=== PATIENT | male | born 1935 | race Caucasian/White ===

== ENCOUNTER → 2019-06-07 | Outpatient (REF) | payer MEDICARE | LOC: M LAB REF 15:18 | DX: D61.818 Other pancytopenia (principal) ==

== ENCOUNTER → 2019-06-21 | Outpatient (REF) | payer MEDICARE ==
[2019-06-21 12:54] LABS: BASO % 0.2 % (0.0-1.0); HEMATOCRIT 21.5 % (42.0-52.0); HEMOGLOBIN 7.2 g/dl (13.5-17.5); LYMPH # 2.9 10^3/uL (1.5-5.0); LYMPH % 44.2 % (24.0-44.0); MEAN CORPUSCULAR HEMOGLOBIN 34.1 pg (27.0-33.0); MEAN CORPUSCULAR HGB CONC 33.5 g/dl (32.0-36.5); MEAN CORPUSCULAR VOLUME 101.9 fl (80.0-96.0); MONO # 2.2 10^3/uL (0.0-0.8); MONO % 33.3 % (0.0-5.0); NEUTROPHILS # 1.4 10^3/uL (1.5-8.5); NEUTROPHILS % 22.3 % (36.0-66.0); RED BLOOD COUNT 2.11 10^6/uL (4.30-6.10); WHITE BLOOD COUNT 6.5 10^3/uL (4.0-10.0)
[2019-06-21 13:37] LABS: PLATELET COUNT, AUTOMATED 31 10^3/uL (150-450)
== END ==
LOC: M LABDRWAD 12:17
DX: D61.818 Other pancytopenia (principal)

== ENCOUNTER 2019-06-24 07:18 | Inpatient (IN) | payer MEDICARE ==
[2019-06-24] VITALS (12 sets, daily range): BP systolic 117–143; BP diastolic 53–90
[~2019-06-24] VITALS: Ht 162.6 cm; Wt 62.5 kg
[2019-06-24] MEDS ORDERED: LISI-538 PO (07:28)
[2019-06-24] MEDS ORDERED: ASPI81TA85 PO (07:28)
[2019-06-24 08:05] LABS: MEAN CORPUSCULAR HEMOGLOBIN 34.1 pg (27.0-33.0); MEAN CORPUSCULAR HGB CONC 33.5 g/dl (32.0-36.5); MEAN CORPUSCULAR VOLUME 101.6 fl (80.0-96.0); RED BLOOD COUNT 1.82 10^6/uL (4.30-6.10); WHITE BLOOD COUNT 6.6 10^3/uL (4.0-10.0)
[2019-06-24 08:09] LABS: HEMATOCRIT 18.5 % (42.0-52.0); HEMOGLOBIN 6.2 g/dl (13.5-17.5)
[2019-06-24 08:10] LABS: PLATELET COUNT, AUTOMATED 27 10^3/uL (150-450)
[2019-06-24 08:30] LABS: ALBUMIN 2.8 GM/DL (3.2-5.2); ALT/SGPT 12 U/L (12-78); BILIRUBIN,DIRECT < 0.1 MG/DL (0.0-0.2); BILIRUBIN,TOTAL 0.3 MG/DL (0.2-1.0); BLOOD UREA NITROGEN 28 MG/DL (7-18); CALCIUM LEVEL 8.3 MG/DL (8.8-10.2); CARBON DIOXIDE LEVEL 21 MEQ/L (21-32); CHLORIDE LEVEL 107 MEQ/L (98-107); CK-MB VALUE MASS < 1.0 NG/ML (<3.6); CPK CREATINE PHOSPHOKINASE 29 U/L (39-308); CREATININE FOR GFR 1.16 MG/DL (0.70-1.30); GLOMERULAR FILTRATION RATE > 60.0 (>35); GLUCOSE, FASTING 115 MG/DL (70-100); MB/CK RELATIVE INDEX 3.45 (< OR =4); POTASSIUM SERUM 4.2 MEQ/L (3.5-5.1); SODIUM LEVEL 135 MEQ/L (136-145); TOTAL PROTEIN 7.8 GM/DL (6.4-8.2); TROPONIN I < 0.02 NG/ML (< 0.10)
[2019-06-24 08:31] LABS: PERCENT SATURATION 77.8 % (19.7-50.0)
[2019-06-24 08:41] LABS: LYMPHOCYTES 25 % (16-44); MONOCYTES 53 % (0-5); NEUTROPHILS 22 % (28-66)
[2019-06-24 08:43] LABS: ANISOCYTOSIS 2+; HYPOCHROMASIA 2+; PLATELET ESTIMATE MARKED DECREASE (NORMAL); POLYCHROMASIA 1+
[2019-06-24 08:44] LABS: POIKILOCYTOSIS 1+
[2019-06-24] MEDS ORDERED: ACETAMINOPHEN TAB 650MG DOSE (2X325MG) PO PRN (08:45)
[2019-06-24 08:47] LABS: FOLATE 11.2 NG/ML (>5.4)
[2019-06-24 09:10] LABS: INR 1.17; PROTHROMBIN TIME 14.6 SECONDS (11.8-14.0)
[2019-06-24 09:14] LABS: PARTIAL THROMBOPLASTIN TIME 39.7 SECONDS (25.0-38.4)
--- NOTE | 2019-06-24 13:33 | HPEPDOC ---
[facility] Medical History & Physical Date of Admission Jun 24, 2019 Date of Service: Jun 24, 2019 Other Provider PCP- Dr. Jain, [facility] Attending Physician: Olivia Almaguer MD History and Physical CHIEF COMPLAINT: weakness HISTORY OF PRESENT ILLNESS: The patient is an 84-year-old male with past medical history of hypertension who presented to [facility] emergency room with the chief complaint of increased weakness. According to the patient he's had worsening weakness over the past 2-3 months, mostly increasing over the past one month. He states that he needed a transfusion about one month ago in the [facility] area. He is new to the area for one month and has not established with a primary care provider. Today he says that in addition to weakness he also felt lightheaded and had had a productive cough of thick sputum. This prompted him to come to the emergency room for further evaluation. He denied shortness of breath, sick contacts, recent hospitalizations, dizziness, fevers, chills, recent illnesses, recent travel out of the country, nausea, vomiting, diarrhea, headache, vision changes, bleeding, abdominal pain, loss of appetite, fluttering of the chest or chest pain. In the ER, labs were unremarkable aside from platelet level of 27 and a hemoglobin/hematocrit of 6.2 and 18.5. The patient consented to blood transfusion and 1 unit of PRBC was ordered. On exam the patient had no abdominal pain and did not complain of any acute bleeding so CT of the abdomen was not done. He is on aspirin at home and has no history of hematological issues in the past. The patient is frail appearing, pale and has a resting tremor in the jenni ateral upper extremities. The patient was admitted under inpatient status for symptomatic anemia requiring blood transfusion. REVIEW OF SYSTEMS: CONSTITUTIONAL: Denies unexplained weight gain or weight loss, loss of appetite, fever, night sweats EYES: Denies eye drainage, eye pain, visual changes, dry/irritated eye EARS, NOSE, MOUTH, THROAT: Denies difficulty hearing, ringing in ears, mouth sor es, loose teeth, sore throat, facial numbness or pain NECK: Denies swollen glands CARDIOVASCULAR: Denies irregular heartbeat, racing heart, chest pains, swelling of feet or legs, pain in legs with walking RESPIRATORY: Denies shortness of breath, night sweats, wheezing, oxygen at home, coughing up blood, cough lasting > 1 month GASTROINTESTINAL: Denies abdominal pain, constipation, bloody stool, diarrhea, heartburn, nausea, vomiting GENITOURINARY: Denies painful urination, bloody urine, frequent urination, urgency, leaking urine, impotence MUSCULOSKELETAL: Denies joint pain, muscle pain, leg swelling INTEGUMENTARY: Denies rash, itching, new skin lesion, change in existing skin lesion, hair loss or increase, breast changes. NEUROLOGICAL: Denies headaches, dizziness, difficulty walking, numbness or tingling PSYCHIATRIC: Denies depression, anxiety, recurrent bad thoughts, mood swings, h allucinations PAST MEDICAL HISTORY: 1. HTN PAST SURGICAL HISTORY: None FAMILY HISTORY: Father: unknown to patient, at 80 y/o Mother: unknown to patient, at 84 y/o Siblings: brother CAD, at 30 y/o SOCIAL HISTORY: Patient is a prior smoker of 1 pack every 2 days, smoked for 31 years and quit in 1982. He denies any alcohol or drug use. His primary care provider is Dr. Jain in [place], [place]. He states he has seen subassemblies wirer in the past but cannot remember her name. He does not have any other specialists that he follows with. He's recently moved to the local area to live with his brother as he was having some difficulty caring for himself at his prior residence. His brother's name is Felice Pascual. He has no advance directives but a MOLST form was filled out today with him at the bedsidehe is a DNR/DNI. ALLERGIES: NKDA HOME MEDICATIONS: Please see below. PHYSICAL EXAMINATION: CONSTITUTIONAL: Pale in color, no acute distress, resting comfortably, AAO x 3 EYES: PERRLA, EOM intact HENT, MOUTH: Normocephalic, atraumatic, moist mucous membranes, NECK: SUPPLE, no JVD, no lymphadenopathy, no carotid bruit CV: Regular rate and rhythm, S1S2 normal, no murmurs/rubs/gallops RESPIRATORY: Clear to auscultation bilaterally, no rales/rhonchi/wheezes GI: BS positive in 4 quadrants, soft, nontender, nondistended, no rebound or guarding, no organomegaly : Deferred MUSCULOSKELETAL: Normal ROM. No cyanosis, clubbing, swelling, joint deformity, e xtremity edema INTEGUMENTARY: Intact, no rashes, no lesions, no erythema NEUROLOGIC: bilateral upper ext resting treamor, Cranial Nerves II-XII are intact, no focal deficits, no sensory or motor deficit PSYCHIATRIC: Mood and affect are normal LABORATORY DATA: Please see below IMAGING: none ASSESSMENT: Recent is an 84-year-old male admitted for symptomatic anemia requiring transfusion. PLAN: 1. Symptomatic anemia. Hx of blood transfusion, thinks he was seen by a "blood doctor" in [place]. MCV 101. Vitamin B12 and folic acid are within normal limits. Ferritin, transferrin high. TIBC low, ferritin and iron wnl. Follow up TSH, LDH, reticulocyte count, haptoglobin. Consider hepatitis panel, HIV test. If negative consider hematology consult, may require bone marrow biopsy. F/u occult blood as patient is on home ASA (stopped), daily CBC. Goal Hgb >7 2. Stable. C/w home lisinopril. 3. DVT px. Contraindicated while occult blood pending. SCDs, encourage ambulation. DISPOSITION: Admitted under inpatient status. Plan is hopefully discharge home when medically improved. Vital Signs Vital Signs Date Time Temp Pulse Resp B/P (MAP) Pulse Ox O2 Delivery O2 Flow Rate FiO2 06/24/19 13:00 99.6 74 16 130/90 100 Room Air Laboratory Data Labs 24H Laboratory Tests 2 06/24/19 07:47: Neutrophils (%) (Auto) , Nucleated Red Blood Cells % (auto) 0.5H, Neutrophils 22L, Lymphocytes (Manual) 25, Monocytes (Manual) 53H, Polychromasia 1+, Hypochromasia 2+, Poikilocytosis 1+, Anisocytosis 2+, Macrocytosis 1+, Platelet Estimate MARKED DECREASE, Immature Platelet Fraction 8.1, Prothrombin Time 14.6H, Prothromb Time International Ratio 1.17, Activated Partial Thromboplast Time 39.7H, Anion Gap 7L, Glomerular Filtration Rate > 60.0, Calcium Level 8.3L, Iron Level 133, Total Iron Binding Capacity 171L, Transferrin % Saturation 77.8H, Ferritin 845H, Total Bilirubin 0.3, Direct Bilirubin < 0.1, Aspartate Amino Transf (AST/SGOT) 8, Alanine Aminotransferase (ALT/SGPT) 12, Alkaline Phos phatase 78, Total Creatine Kinase 29L, Creatine Kinase MB < 1.0, Creatine Kinase MB Relative Index 3.45, Troponin I < 0.02, Total Protein 7.8, Albumin 2.8L, Albumin/Globulin Ratio 0.56L, Vitamin B12 Level 298, Folate 11.2 CBC/BMP Laboratory Tests 06/24/19 07:47 Home Medications Scheduled Aspirin (Aspir 81) 81 Mg Tablet.dr, 81 MG PO QPM Lisinopril (Lisinopril) 20 Mg Tablet, 20 MG PO DAILY Allergies Coded Allergies: No Known Allergies (Verified Allergy, Unknown, 06/24/19) A-FIB/CHADSVASC A-FIB History Current/History of A-Fib/PAF?: No Current PO Anticoag Therapy: No Age/Risk Factor Scoring CHADSVASC: CHADSVASC Response (Comments) Value Age Risk Factor Age >/= 75 years old 2 Gender Risk Factor Male 0 Hx of CHF No 0 Hx of Stroke/TIA/or VTE No 0 Hx of Diabetes No 0 Hx of Vascular Disease No 0 Total 2 Treatment Treatment ordered: NONE Reason Anticoagulant not given: Other Other reason anticoagulant not: occult blood test pending, r/o GI bleed as cause of anemia Current Medications Current Medications Medications (Trade) Dose Ordered Sig/Lilliana Route PRN Reason Start Time Stop Time Status Last Admin Dose Admin Acetaminophen (Tylenol Tab) 650 mg Q4H PRN PO PAIN OR FEVER 06/24/19 08:45 Home Med (Med Rec Complete!) ASDIRECTED XX 06/24/19 08:30 06/24/19 08:23 DC Lisinopril (Prinivil) 20 mg DAILY PO 06/25/19 09:00 Olivia Almaguer MD Jun 24, 2019 13:32
[2019-06-24 16:05] LABS: THYROID STIMULATING HORMONE 3.41 uIU/ML (0.358-3.740)
[2019-06-24 16:48] LABS: HEPATITIS A ANTIBODY IGM NEGATIVE (NEGATIVE); HEPATITIS B CORE ANTIBODY IGM NEGATIVE (NEGATIVE); HEPATITIS B SURFACE ANTIGEN NEGATIVE (NEGATIVE); HEPATITIS C VIRUS ABY INDEX 0.1 INDEX (<0.8)
[2019-06-24 18:08] LABS: HEMATOCRIT 29.9 % (42.0-52.0); HEMOGLOBIN 10.2 g/dl (13.5-17.5); MEAN CORPUSCULAR HEMOGLOBIN 31.5 pg (27.0-33.0); MEAN CORPUSCULAR HGB CONC 34.1 g/dl (32.0-36.5); MEAN CORPUSCULAR VOLUME 92.3 fl (80.0-96.0); RED BLOOD COUNT 3.24 10^6/uL (4.30-6.10); WHITE BLOOD COUNT 7.5 10^3/uL (4.0-10.0)
[2019-06-24 18:11] LABS: PLATELET COUNT, AUTOMATED 25 10^3/uL (150-450)
[2019-06-25 02:08] VITALS: BP 112/62
[2019-06-25 06:01] VITALS: BP 114/61
[2019-06-25 06:49] LABS: HEMATOCRIT 27.7 % (42.0-52.0); HEMOGLOBIN 9.4 g/dl (13.5-17.5); MEAN CORPUSCULAR HEMOGLOBIN 31.2 pg (27.0-33.0); MEAN CORPUSCULAR HGB CONC 33.9 g/dl (32.0-36.5); RED BLOOD COUNT 3.01 10^6/uL (4.30-6.10); WHITE BLOOD COUNT 6.1 10^3/uL (4.0-10.0)
[2019-06-25 06:57] LABS: PLATELET COUNT, AUTOMATED 24 10^3/uL (150-450)
[2019-06-25 07:10] LABS: ALBUMIN 2.5 GM/DL (3.2-5.2); ALT/SGPT 11 U/L (12-78); BILIRUBIN,TOTAL 0.4 MG/DL (0.2-1.0); BLOOD UREA NITROGEN 21 MG/DL (7-18); CALCIUM LEVEL 7.9 MG/DL (8.8-10.2); CARBON DIOXIDE LEVEL 24 MEQ/L (21-32); CHLORIDE LEVEL 107 MEQ/L (98-107); CREATININE FOR GFR 1.05 MG/DL (0.70-1.30); GLOMERULAR FILTRATION RATE > 60.0 (>35); GLUCOSE, FASTING 90 MG/DL (70-100); POTASSIUM SERUM 4.5 MEQ/L (3.5-5.1); SODIUM LEVEL 136 MEQ/L (136-145)
--- NOTE | 2019-06-25 08:41 | ECGEPIP ---
[facility] - ED Test Date: 2019-06-24 Pat Name: NIKKO CROWLEY Department: Room: - Gender: Male Director Of Materials: : 1935 Requested By: Ivan Castellon Order Number: [id number] Reading MD: Laurie Carter Measurements Intervals [place] Rate: 71 P: -14 GA: 206 QRS: 71 QRSD: 86 T: 7 QT: 377 QTc: 411 Interpretive Statements SINUS RHYTHM NO PRIOR Electronically Signed on 06-25-2019 8:41:25 EDT by Laurie Carter
[2019-06-25] MEDS ORDERED: lisinopriL 20 MG TAB PO SCH (09:00)
[2019-06-25 09:01] VITALS: BP 114/61
[2019-06-25 10:00] VITALS: BP 121/64
--- NOTE | 2019-06-25 14:30 | DS.PDOC ---
Discharge Summary General Date of Admission Jun 24, 2019 at 08:37 Date of Discharge 06/24/19 Attending Physician: Oliiva Almaguer MD Discharge Summary HISTORY OF PRESENT ILLNESS: The patient is an 84-year-old male with past medical history of hypertension who presented to [facility] emergency room with the chief complaint of increased weakness. According to the patient he's had worsening weakness over the past 2-3 months, mostly increasing over the past one month. He states that he needed a transfusion about one month ago in the [facility]. He is new to the area for one month and has not established with a primary care provider. Today he says that in addition to weakness he also felt lightheaded and had had a productive cough of thick sputum. This prompted him to come to the emergency room for further evaluation. He denied shortness of breath, sick contacts, recent hospitalizations, dizziness, fevers, chills, recent illnesses, recent travel out of the country, nausea, vomiting, diarrhea, headache, vision changes, bleeding, abdominal pain, loss of appetite, fluttering of the chest or chest pain. In the ER, labs were unremarkable aside from platelet level of 27 and a hemoglobin/hematocrit of 6.2 and 18.5. The patient consented to blood ruffin sfusion and 3 unit of PRBC was ordered. On exam the patient had no abdominal pain and did not complain of any acute bleeding so CT of the abdomen was not done. He is on aspirin at home and has no history of hematological issues in the past. The patient is frail appearing, pale and has a resting tremor in the bilateral upper extremities. The patient was admitted under inpatient status for symptomatic anemia requiring blood transfusion. HOSPITAL COURSE: Patient's ijbjwk-ld-swi informed us that the patient has been seen by a computer art instructor in the past and has an upcoming bone marrow biopsy. He has also required PLT transfusion along with PRBC in the past. He completed 3 units PRBC on 06/25/19 and tolerated all three infusing well. H/H corrected well. He denied any lightheaded, dizziness, nausea the next morning on 06/25/19. He appeared less ashened and felt like he had more energy. VS remained stable this stay. He did not meet criteria for platelet transfusion. The patient had no other concerns for acute or chronic bleeding. On 06/25/2019 the patient was discharged home with follow-up with primary care provider and told to keep his 07/04/2019 bone biopsy appointment. At the time of discharge the patient had no acute complaints. Discharge diagnosis symptomatic anemia, idiopathic thrombocytopenia. REVIEW OF SYSTEMS: CONSTITUTIONAL: Denies unexplained weight gain or weight loss, loss of appetite, fever, night sweats EYES: Denies eye drainage, eye pain, visual changes, dry/irritated eye EARS, NOSE, MOUTH, THROAT: Denies difficulty hearing, ringing in ears, mouth sores, loose teeth, sore throat, facial numbness or pain NECK: Denies swollen glands CARDIOVASCULAR: Denies irregular heartbeat, racing heart, chest pains, swelling of feet or legs, pain in legs with walking RESPIRATORY: Denies shortness of breath, night sweats, wheezing, oxygen at home, coughing up blood, cough lasting > 1 month GASTROINTESTINAL: Denies abdominal pain, constipation, bloody stool, diarrhea, heartburn, nausea, vomiting GENITOURINARY: Denies painful urination, bloody urine, frequent urination, urgency, leaking urine, impotence MUSCULOSKELETAL: Denies joint pain, muscle pain, leg swelling INTEGUMENTARY: Denies rash, itching, new skin lesion, change in existing skin lesion, hair loss or increase, breast changes. NEUROLOGICAL: Denies headaches, dizziness, difficulty walking, numbness or t ingling PSYCHIATRIC: Denies depression, anxiety, recurrent bad thoughts, mood swings, hallucinations PAST MEDICAL HISTORY: 1. HTN 2. Thrombocytopenia, chronic 3. Anemia, chronic PAST SURGICAL HISTORY: None FAMILY HISTORY: Father: unknown to patient, at 80 y/o Mother: unknown to patient, at 84 y/o Siblings: brother CAD, at 30 y/o SOCIAL HISTORY: Patient is a prior smoker of 1 pack every 2 days, smoked for 31 years and quit in 1982. He denies any alcohol or drug use. His primary care provider is Dr. Jain in [place], [place]. He states he has seen computer art instructor in the past but cannot remember her name. He does not have any other specialists that he follows with. He's recently moved to the local area to live with his brother as he was having some difficulty caring for himself at his prior residence. His brother's name is Felice Pascual. He has no advance directives but a MOLST form was filled out today with him at the bedsidehe is a DNR/DNI. ALLERGIES: NKDA HOME MEDICATIONS: Please see below. PHYSICAL EXAMINATION: CONSTITUTIONAL: In no acute distress, resting comfortably, AAO x 3 EYES: PERRLA, EOM intact HENT, MOUTH: Normocephalic, atraumatic, moist mucous membranes, NECK: SUPPLE, no JVD, no lymphadenopathy, no carotid bruit CV: Regular rate and rhythm, S1S2 normal, no murmurs/rubs/gallops RESPIRATORY: Clear to auscultation bilaterally, no rales/rhonchi/wheezes GI: BS positive in 4 quadrants, soft, nontender, nondistended, no rebound or guarding, no organomegaly : Deferred MUSCULOSKELETAL: Normal ROM. No cyanosis, clubbing, swelling, joint deformity, extremity edema INTEGUMENTARY: Intact, no rashes, no lesions, no erythema NEUROLOGIC: bilateral upper ext resting treamor, Cranial Nerves II-XII are intact, no focal deficits, no sensory or motor deficit PSYCHIATRIC: Mood and affect are normal LABORATORY DATA: Please see below IMAGING: none ASSESSMENT: The patient is an 84-year-old male admitted for symptomatic anemia requiring transfusion. PLAN: 1. Symptomatic anemia. Improved this AM. S/p 3 units PRBC with hx of PRBC and PLT transfusion. Vitamin B12 and folic acid are within normal limits; however, MCV elevated. Ferritin, transferrin high. TIBC low, ferritin, hepatitis panel neg and iron wnl. No concern for hemolysis. Advised patient to f/u with computer art instructor and keep June bone marrow biopsy scheduled. 2. Thrombocytopenia, chronic. F/u as mentioned above. 3. Stable. C/w home lisinopril. DISPOSITION: Discharging home today in improved condition. He is advised to make PCP appt for 1-2 weeks post discharge, keep bone marrow appt. His ejosxy-pu-gzh, who he lives with, was updated on plan. TIME SPENT ON DISCHARGE: 25 minutes. Vital Signs/I&Os Vital Signs Date Time Temp Pulse Resp B/P (MAP) Pulse Ox O2 Delivery O2 Flow Rate FiO2 06/25/19 10:00 98.8 63 16 121/64 (83) 98 Room Air I&O- Last 24 Hours up to 6 AM 06/25/19 06:00 Intake Total 2760 ml Output Total 2100 ml Balance 660 ml Laboratory Data Labs 24H Laboratory Tests 2 06/24/19 15:16: Lactate Dehydrogenase 192, Thyroid Stimulating Hormone (TSH) 3.410, Hepatitis A IgM Antibody NEGATIVE, Hepatitis B Surface Antigen NEGATIVE, Hepatitis B Core IgM Antibody NEGATIVE, Hepatitis C Antibody Index 0.1 06/24/19 17:57: Nucleated Red Blood Cells % (auto) 0.8H 06/25/19 06:11: Nucleated Red Blood Cells % (auto) 0.8H, Anion Gap 5L, Glomerular Filtration Rate > 60.0, Calcium Level 7.9L, Total Bilirubin 0.4, Aspartate Amino Transf (AST/SGOT) 8, Alanine Aminotransferase (ALT/SGPT) 11L, Alkaline Phosphatase 72, Total Protein 7.0, Albumin 2.5L, Albumin/Globulin Ratio 0.56L CBC/BMP Laboratory Tests 06/24/19 17:57 06/25/19 06:11 Discharge Medications Scheduled Aspirin (Aspir 81) 81 Mg Tablet.dr, 81 MG PO QPM, (Reported) Lisinopril (Lisinopril) 20 Mg Tablet, 20 MG PO DAILY, (Reported) Allergies Coded Allergies: No Known Allergies (Verified Allergy, Unknown, 06/24/19) Olivia Almaguer MD Jun 25, 2019 14:30
== END 2019-06-25 11:59 | disposition home or self-care (01) | DRG 812 ==
LOC: M ED 07:18 → M ED INP 08:37 → ENRESERVTM 09:08 → ENRESERVDT 09:08 → M MS5PR 10:10
PROVIDERS: ADMIT Internal Medicine; ATTEND Internal Medicine
PROC: 30233N1 Transfusion of Nonautologous Red Blood Cells into Peripheral Vein, Percutaneous Approach (ICD-10-PCS; principal; 2019-06-24)
DX: D64.9 Anemia, unspecified (principal); D69.6 Thrombocytopenia, unspecified; I10 Essential (primary) hypertension; Z66 Do not resuscitate; Z87.891 Personal history of nicotine dependence; Z79.82 Long term (current) use of aspirin; Z79.899 Other long term (current) drug therapy

== ENCOUNTER 2019-06-27 09:43 | Inpatient (IN) | payer MEDICARE ==
[~2019-06-27] VITALS: Ht 162.6 cm; Wt 58.9 kg
[~2019-06-27 09:43] MED LIST: ASPI81TA85 PO; LISI-538 PO
[2019-06-27] MEDS ORDERED: metamucil (09:51)
[2019-06-27 10:39] LABS: HEMATOCRIT 29.5 % (42.0-52.0); HEMOGLOBIN 9.8 g/dl (13.5-17.5); MEAN CORPUSCULAR HGB CONC 33.2 g/dl (32.0-36.5); MEAN CORPUSCULAR VOLUME 93.4 fl (80.0-96.0); RED BLOOD COUNT 3.16 10^6/uL (4.30-6.10); WHITE BLOOD COUNT 6.1 10^3/uL (4.0-10.0)
[2019-06-27 10:46] LABS: INR 1.15; PROTHROMBIN TIME 14.4 SECONDS (11.8-14.0)
[2019-06-27 10:47] LABS: PARTIAL THROMBOPLASTIN TIME 35.6 SECONDS (25.0-38.4)
[2019-06-27 10:52] LABS: PLATELET COUNT, AUTOMATED 24 10^3/uL (150-450)
[2019-06-27 11:07] LABS: BILIRUBIN,DIRECT 0.1 MG/DL (0.0-0.2); BILIRUBIN,TOTAL 0.5 MG/DL (0.2-1.0); C REACTIVE PROTEIN QUANTITATIV 3.95 MG/DL (0.00-0.30); TOTAL PROTEIN 7.9 GM/DL (6.4-8.2); URIC ACID 4.6 MG/DL (3.5-7.2)
--- NOTE | 2019-06-27 11:12 | REP ---
RIGHT HAND SERIES: FOUR VIEWS. HISTORY: Swelling of the right first metacarpal phalangeal joint. FINDINGS: Four views right hand demonstrate overall normal mineralization. There are mild osteoarthritic changes at the navicular multangular and first carpometacarpal articulation. Soft tissue swelling is seen about the first MCP joint but no fracture or opaque foreign body is seen. IMPRESSION: Soft-tissue swelling. No acute bony abnormality. Osteoarthritic changes are noted. Electronically Signed by Scott Mcdonald MD 06/27/2019 03:37 P
[2019-06-27 11:34] LABS: ERYTHROCYTE SEDIMENTATION RATE 127 mm/hr (0-20)
[2019-06-27 11:56] LABS: ATYPICAL LYMPH 3 % (0-5); LYMPHOCYTES 41 % (16-44); MONOCYTES 12 % (0-5); NEUTROPHILS 32 % (28-66); PLATELET ESTIMATE MARKED DECREASE (NORMAL)
[2019-06-27 11:57] LABS: ANISOCYTOSIS 1+
[2019-06-27 12:11] LABS: BLAST CELLS 12 % (0-0)
[2019-06-27] MEDS ORDERED: AMPICILLIN SOD/SULBACTAM SOD 3 GM in D5W MINI-BAG PLUS 100 ML IV ONE ×2 (13:15→14:45)
[2019-06-27] MEDS ORDERED: META58.68 PO (13:38)
[2019-06-27] MEDS ORDERED: ACETAMINOPHEN TAB 650MG DOSE (2X325MG) PO PRN (15:00)
[2019-06-27 15:04] VITALS: BP 149/67
--- NOTE | 2019-06-27 16:35 | HPE ---
DATE OF ADMISSION: 06/27/2019 Time: Approximately 2:30 p.m. CHIEF COMPLAINT: Right thumb pain. HISTORY OF THE PRESENT ILLNESS: Mr. Pascual is an 84-year-old gentleman with a history of hypertension, as well as pancytopenia, recently diagnosed 1 month ago. He had previously been living in the [facility] and had been scheduled to have an outpatient bone marrow biopsy; however, said it got delayed with the recent COVID-19 virus pandemic. He was recently hospitalized here on Thursday and discharged on 06/25/2019 for a diagnosis of symptomatic anemia. He was transfused with packed red blood cells with improvement in his hemoglobin level and then he was subsequently sent home. Since being home, last night he started developing pain in his right thumb, which has increased as well as with associated redness. His davtjl-xs-leh, who is a nurse, who he is living with at the present moment, brought him into the emergency room (ER) today. He was not noted to have any leukocytosis or fever; however, when they did a CBC, the patient did have 12% blasts, which were not seen on CBC done on his recent hospitalization. The provider contacted Dr. Jo of oncology/hematology who recommended that he be admitted to the hospital for further treatment and evaluation to include a bone marrow biopsy. He denies any trauma to his right thumb. ALLERGIES: No known drug allergies (NDKA). MEDICATIONS: Medications currently at home are aspirin 81 mg, as well as lisinopril and Metamucil. PAST MEDICAL HISTORY: Relevant for hypertension, pancytopenia requiring transfusions, cataracts. SURGICAL HISTORY: Notable only for cataracts. SOCIAL HISTORY: He previously lived in the [facility], but he has moved down to this area to be closer to his family. He has never , never had children. He worked at the former [employer] in [place]. He is an ex-smoker; he quit in 1982. He stopped drinking after he got a DUI 20-something years ago. He does not use any illicit drugs. He lists himself as a DO NOT RESUSCITATE/DO NOT INTUBATE (DNR/DNI) with his sister Deanna and his brother Felice Pascual as his medical power of managing attorney. FAMILY HISTORY: Notable for a sister who had colon cancer, another sister with diabetes. Heart disease is very prevalent in the family with many members also having hypertriglyceridemia. REVIEW OF SYSTEMS: Positive for ongoing weight loss, as well as fatigue. Remainder of 12 systems reviewed, patient otherwise negative. PHYSICAL EXAMINATION: Temperature is 96.8, pulse is 67 and regular, respirations are 20, blood pressure is 149/67, oxygen saturation (O2 sat) is 99% on room air. General: The patient is alert and oriented times three. He appears his stated age. He has pallor of his skin with some fine petechiae, mostly noticeable on his left lower extremity ly. His head is atraumatic without any visible deformities. Pupils are symmetric and reactive to light. Extraocular movements are full in all directions. No scleral icterus or conjunctival pallor. Oropharynx: He has upper dentures in place. Could not visualize his palate. His neck is supple without any palpable lymphadenopathy. No thyromegaly is palpated, nor is there thyroid gland tenderness. Lung sounds are appreciated bilaterally without rales. S1, S2. No murmurs, rubs, or gallops. He is currently in a sinus rhythm. His abdomen is soft, nontender, nondistended, scaphoid in appearance. He has active bowel sounds. No palpable organomegaly or masses. Extremities: He has palpable dorsalis pedis pulses. Capillary refill is less than 5 seconds. No visible rashes aside from the petechiae described above or nonhealing ulcers are appreciated. He is not missing any limbs. RELEVANT DATA ARE THE FOLLOWING: X-ray of his right first metacarpophalangeal joint shows there are mild osteoarthritic changes at the navicular multiangular and the first carpometacarpal articulation. Soft tissue swelling is seen about the first metacarpophalangeal (MCP) joint, but no fracture or opaque foreign body is seen, only soft tissue swelling. RELEVANT LABS: White count 6.1, hemoglobin 9.8, hematocrit 29.5, platelet counts are 24,000, neutrophils are 32%, lymphocytes are 41%, monocytes are 12%, atypical lymphocytes are 3%, blast cells are 12%, ESR is 127, INR is 1.15, PTT is 35.6, uric acid 12.6, total bilirubin 0.5, direct bilirubin 0.1, AST is 15, ALT is 12, alkaline phosphatase is 82, CRP is 3.95, total protein 7.9, albumin is 3, glucose is 154, sodium 137, potassium 3.9, chloride 105, bicarbonate is 21, BUN is 22, creatinine is 1, hematocrit (dictation cut off). IMPRESSION: Pancytopenia with blast cells. PLAN: Patient will be admitted to inpatient status to general medical floor. Dr. Jo of hematology/oncology will be consulted. Patient will need a bone marrow biopsy. Will stop his aspirin. He will be placed on sequential compression devices (SCDs) only for deep vein thrombosis (DVT) prophylaxis. He will be a DO NOT RESUSCITATE/DO NOT INTUBATE per his wishes. Further recommendations to follow based on results of bone marrow biopsy.
[2019-06-27] MEDS: AMPICILLIN SOD/SULBACTAM SOD 3 GM in D5W MINI-BAG PLUS 100 ML IV SCH (18:14)
--- NOTE | 2019-06-27 20:13 | CR ---
DATE OF CONSULTATION: 06/27/2019 DIAGNOSIS: Pancytopenia. CONSULTATION REPORT FOR: Jh Bautista MD HISTORY OF PRESENT ILLNESS: Mr. Pascual is an 84-year-old man, recently relocated from [place] to [place], living with his brother and izmgfx-bh-vze for the last month. A month ago in [place], he was hospitalized for profound anemia, received multiple transfusions, was provisionally diagnosed with some sort of hematologic problem possibly leukemia, a bone marrow biopsy was planned and then cancelled due to COVID-19 emergency. His primary care doctor in [place] is Dr. Anjum Jain. Mr. Pascual reports seeing Dr. Jain about every six months up until very recently and not having a long history of low blood counts that he is aware of. I have also spoken with the patient's swstrd-ps-aww, Deanna Pascual, herself a retired nurse and aware of the [place] hematology consult. She was not sure but felt through her reading and being a nurse that Mr. Pascual might have leukemia. They had not had an extensive discussion about advanced directives but she knows that Mr. Pascual had signed a DO NOT RESUSCITATE (DNR) and signed a medical orders for life-sustaining treatment (MOLST) form while in [place]. Today at the bedside, Mr. Pascual is quietly watching television. He quickly turned to mute and tends to the interview with me. He answers in short sentences, does not engage in any elaborate way, but is appropriate and attentive. He knows that he has low blood counts, he knows that a bone marrow biopsy has been recommended. He asks when it is going to happen. His thumb hurts and that is why he came into the hospital he says. Earlier in the emergency room, the patient's complete blood count (CBC) showed white blood cell (WBC) 6.1, hemoglobin 9.8, platelets 24, sedimentation rate 127, at least 12% possibly up to 20% blasts on peripheral smear with elevated monocyte count. Plain x-ray of the right hand shows soft tissue swelling about the first metacarpophalangeal (MCP) joint but no fracture or foreign body. The patient has been afebrile through this admission. He also presented to the emergency room three days ago. CBC showed hemoglobin 6.2, platelets 27, monocytosis at 53%, very abnormal. He received three units red blood cell (RBC) transfusion on 06/24/2019. PAST MEDICAL HISTORY: Hypertension, recent diagnosis of cataracts. PAST SURGICAL HISTORY: Cataract surgery. ALLERGIES: No known drug allergies. 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 He was living with his sister until four years ago when she , then living alone but was unable to care for himself, developed some weight loss. Moved to [place] to live with his brother and iepmlx-uh-fiq recently. Just prior to the move in [facility], he was presented with profound anemia requiring transfusion and a bone marrow biopsy was planned but not completed. FAMILY HISTORY: Not elicited. BRIEF REVIEW OF SYSTEMS: The patient denies fevers, chills. He denies weight loss but his poolvs-xz-lit asserts it. He denies easy bruising. His right thumb hurts quite a bit over the left 24 hours. He denies trauma to the hand. He denies any other lumps or bumps or rash, gum bleeding or headache. PHYSICAL EXAMINATION: VITAL SIGNS: At 03:05 p.m., temperature 96.8, blood pressure 149/67, heart rate 67, respiratory rate 20, oxygen saturation 99% on room air. The patient was observed but not examined in the COVID-19 setting, though no suspicion for this patient of COVID-19. He showed me his right hand. There is an obvious swelling, erythema of the right metacarpophalangeal (MCP) joint of the first finger. LABORATORY DATA: CBC as noted. C-reactive protein 3.95. CMP from 06/25/2019 with normal renal function, calcium 7.9. Iron studies from 06/24/2019 with serum iron 133, TIBC 171, transferrin saturation 77, ferritin 845. Sedimentation rate 06/27/2019 was 127. Total protein on 06/07/2019 was 11. IMPRESSION: 1. An 84-year-old gentleman with relatively recent onset pancytopenia requiring transfusions and at least 12% to 20% blasts on peripheral smear. 2. Recent weight loss and loss of activity of daily living (ADL) independence. PLAN: 1. I spoke at length with the patient's mrwvma-pm-ums, Deanna Pascual, about the overall picture looking like either an evolved secondary acute leukemia or a de justyna acute leukemia. In the first case, secondary acute leukemias could include transformation from myelodysplastic syndrome or chronic myelomonocytic leukemia (CMML). Myelodysplastic syndrome (MDS) can sometimes be treated with injectables but this requires daily visits for at least a week on, every 28 days, can often entail additional cytopenias requiring support with further injections and/or further transfusions; in the case of CMML, supportive care is standard. In both cases, overall long-term prognosis is poor, perhaps a year or less, and without treatment very poor, less than six months. If the patient has a myelodysplastic syndrome with excess blasts, this is a somewhat different entity, of pre-leukemia which could again be treated potentially with injectable medicines such as hypomethylating agents. Again, frequent visits to the clinic and so forth are needed. 2. Finally, I asked the pathologist earlier today to send peripheral blood flow cytometry as at least initial diagnostic test. These results usually return within 48 hours. If a definitive diagnosis can be made on peripheral blood, this would obviate immediately performing bone marrow biopsy. Based on my conversation with Deanna today, she would like to talk to Duong first, discuss his wishes overall, before a bone marrow biopsy is performed. 3. Deanna will contact the team to request permission to come in and talk to Duong additionally about his overall advanced directives and wishes in the setting of likely leukemia diagnosis. She would like to discuss with him hospice care and requests if a criminal justice social worker could potentially discuss what hospice is with him. 4. Should peripheral flow leave in doubt whether this is an acute leukemia de justyna or a secondary leukemia and/or what kind, bone marrow biopsy should be performed. This does not necessarily have to be done inpatient but to minimize [id number]-[id number] could be done inpatient with the patient following up outpatient 10 days later or so. Due to COVID-19, wanting to minimize unnecessary visits, procedures and so forth, we asked the patience of the inpatient team while family discusses with Mr. Pascual his wishes in the setting of a potential poor prognosis. 5. Meanwhile, would transfuse with platelets for a count less than 15, or platelet count less than 20 with signs or symptoms of bleeding; red blood cell (RBC) transfusion for hemoglobin less than 8. 06/27/29 addendum 1:10 pm at time of signing: Dr. Goncalves of pathology called to report an estimated 20-30% blasts on flow cytometry, consistent with acute leukemia; cytogenetics to follow may identify whether this is de justyna acute leukemia, or secondary leukemia evolved from underlying chronic hematologic condition such as MDS. [facility]
[2019-06-27] MEDS ORDERED: NAPROXEN 250 MG TAB PO ONE (21:45)
[2019-06-27 22:00] VITALS: BP 122/53
[2019-06-28] MEDS: AMPICILLIN SOD/SULBACTAM SOD 3 GM in D5W MINI-BAG PLUS 100 ML IV SCH ×3 (00:22→12:28)
[2019-06-28 06:00] VITALS: BP 120/62
[2019-06-28 06:27] LABS: ALBUMIN 2.4 GM/DL (3.2-5.2); ALT/SGPT 11 U/L (12-78); BILIRUBIN,TOTAL 0.3 MG/DL (0.2-1.0); BLOOD UREA NITROGEN 22 MG/DL (7-18); CALCIUM LEVEL 7.4 MG/DL (8.8-10.2); CARBON DIOXIDE LEVEL 25 MEQ/L (21-32); CHLORIDE LEVEL 107 MEQ/L (98-107); CREATININE FOR GFR 1.13 MG/DL (0.70-1.30); GLOMERULAR FILTRATION RATE > 60.0 (>35); GLUCOSE, FASTING 90 MG/DL (70-100); POTASSIUM SERUM 4.2 MEQ/L (3.5-5.1); SODIUM LEVEL 138 MEQ/L (136-145); TOTAL PROTEIN 6.6 GM/DL (6.4-8.2); URIC ACID 4.6 MG/DL (3.5-7.2)
[2019-06-28 07:39] LABS: C REACTIVE PROTEIN QUANTITATIV 3.77 MG/DL (0.00-0.30)
[2019-06-28 07:54] LABS: HEMATOCRIT 25.2 % (42.0-52.0); HEMOGLOBIN 8.5 g/dl (13.5-17.5); MEAN CORPUSCULAR HEMOGLOBIN 31.6 pg (27.0-33.0); MEAN CORPUSCULAR HGB CONC 33.7 g/dl (32.0-36.5); MEAN CORPUSCULAR VOLUME 93.7 fl (80.0-96.0); RED BLOOD COUNT 2.69 10^6/uL (4.30-6.10); WHITE BLOOD COUNT 5.5 10^3/uL (4.0-10.0)
[2019-06-28] MEDS ORDERED: KEFL500C17 PO (08:01)
[2019-06-28 08:06] LABS: PLATELET COUNT, AUTOMATED 19 10^3/uL (150-450)
[2019-06-28 08:07] VITALS: BP 124/64
[2019-06-28] MEDS ORDERED: HYOS125TA PO (08:20)
[2019-06-28] MEDS ORDERED: LORA0.5T5 PO (08:20)
[2019-06-28] MEDS ORDERED: MORP20SO3 PO (08:20)
[2019-06-28 08:54] LABS: ERYTHROCYTE SEDIMENTATION RATE 107 mm/hr (0-20)
[2019-06-28] MEDS ORDERED: lisinopriL 20 MG TAB PO SCH (09:00)
[2019-06-28 09:15] LABS: ANISOCYTOSIS 2+; ATYPICAL LYMPH 3 % (0-5); BLAST CELLS 8 % (0-0); EOSINOPHILS 1 % (0-3); LYMPHOCYTES 37 % (16-44); MONOCYTES 22 % (0-5); NEUTROPHILS 29 % (28-66); PLATELET ESTIMATE MARKED DECREASE (NORMAL)
[2019-06-28 14:07] VITALS: BP 123/57
--- NOTE | 2019-06-28 16:42 | DS.PDOC ---
Discharge Summary General Date of Admission Jun 27, 2019 at 14:38 Date of Discharge 06/28/19 Discharge Summary Per Patient request and family in agreement, Pt was discharged HOME WITH HOSPICE, COMFORT MEASURES ONLY, DNR/DNI. 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 Saira Jo-Medical Oncologist/Assistant Women'S Soccer Coach DISCHARGE INSTRUCTIONS: HOSPITAL COURSE: 84-year-old male DNR/DNI lives with his brother and uqrvct-hd-qjs with past medical history significant for pancytopenia with 12% to 20% blasts on peripheral smear, wt loss, and inability to care for himself, and previously lived in [place] and with oupt plans for bone marrow biopsy, recently admitted to [facility] for symptomatic anemia requiring rbc transfusion, presented to the ER with c/o right base of the thumb redness, swelling, and tenderness admitted for right hand cellulitis treated with iv unasyn with significant improvement. Pt was seen by medical oncologist Dr. Jo. Pt's pancytopenia may be due to: "either an evolved secondary acute leukemia or a de justyna acute leukemia. In the first case, secondary acute leukemias could include transformation from myelodysplastic syndrome or chronic myelomonocytic leukemia (CMML). Myelodysplastic syndrome (MDS) can sometimes be treated with injectables but this requires daily visits for at least a week on, every 28 days, can often entail additional cytopenias requiring support with further injections and/or further transfusions; in the case of CMML, supportive care is standard. In both cases, overall long-term prognosis is poor, perhaps a year or less, and without treatment very poor, less than six months.If the patient has a myelodysplastic syndrome with excess blasts, this is a somewhat different entity, of pre-leukemia which could again be treated potentially with injectable medicines such as hypomethylating agents. Again, frequent visits to the clinic and so forth are needed." Patient informed me that a bone marrow biopsy was planned in [place], but he has since changed his mind and would like to go home with hospice. Prior to hospital discharge, pt signed COMFORT MEASURES ONLY. MOLST FORM SIGNED AND WITNESSED. "I just want to go home to my family. I don't want anything more to be done." Pt's epuwzo-ka-ijm and brother were in agreement. DISCHARGE PHYSICAL EXAMINATION: VITALS: PLS SEE BELOW General:wears eyeglasses. anicteric no jaundice no conversational dyspnea no pallor. head: atraumatic Pupils are symmetric and reactive to light. Extraocular movements are intact Oropharynx: dentures His neck is supple / no JVD without any palpable lymphadenopathy. No thyromegaly is palpated, nor is there thyroid gland tenderness. Lung CTAB AEBE Heart: S1, S2. No murmurs, rubs, or gallops.RRR His abdomen is soft, nontender, nondistended, scaphoid in appearance. (+) bowel sounds x4 quadrants. No palpable organomegaly or masses. Extremities:no c/c/e. right 1st mcp minimal erythema, decreased swelling. no tenderness. full ROM. Skin: petechiae on b/l ue and LE. 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 Soft tissue swelling is seen about the first metacarpophalangeal (MCP) joint, but no fracture or opaque foreign body is seen, only soft tissue swelling. TIME SPENT ON DISCHARGE: 30 minutes Vital Signs/I&Os Vital Signs Date Time Temp Pulse Resp B/P (MAP) Pulse Ox O2 Delivery O2 Flow Rate FiO2 06/28/19 14:07 98.4 68 18 123/57 (79) 96 Room Air I&O- Last 24 Hours up to 6 AM 06/28/19 06:00 Intake Total 1170 ml Output Total 100 ml Balance 1070 ml Laboratory Data Labs 24H Laboratory Tests 2 06/28/19 05:41: Neutrophils (%) (Auto) , Nucleated Red Blood Cells % (auto) 0.5H, Neutrophils 29, Lymphocytes (Manual) 37, Monocytes (Manual) 22H, Eosinophils (Manual) 1, Blastocytes 8H, Atypical Lymphocytes 3, Anisocytosis 2+, Platelet Estimate MARKED DECREASE, Erythrocyte Sedimentation Rate 107H, Anion Gap 6L, Glomerular Filtration Rate > 60.0, Uric Acid 4.6, Calcium Level 7.4L, Total Bilirubin 0.3, Aspartate Amino Transf (AST/SGOT) 9, Alanine Aminotransferase (ALT/SGPT) 11L, Alkaline Phosphatase 67, C-Reactive Protein, Quantitative 3.77H, Total Protein 6.6, Albumin 2.4L, Albumin/Globulin Ratio 0.57L CBC/BMP Laboratory Tests 06/28/19 05:41 Discharge Medications Scheduled Cephalexin (Keflex) 500 Mg Capsule, 500 MG PO TID Lisinopril (Lisinopril) 20 Mg Tablet, 20 MG PO DAILY, (Reported) Psyllium Husk (Metamucil) 660 Gm Powder, 1 PKT PO DAILY, (Reported) MIXES 1 TABLESPOON INTO A GLASS OF WATER Scheduled PRN Hyoscyamine Sulfate (Hyoscyamine Sulfate) 0.125 Mg Tab.subl, 0.125 MG PO Q4HP PRN for TERMINAL SECRETIONS Use sublingually if unable to swallow Lorazepam (Lorazepam) 0.5 Mg Tablet, 0.5 MG PO Q4HP PRN for ANXIETY/AGITATION Use sublingually if unable to swallow Morphine Sulfate (Morphine Sulfate) 100 Mg/5 Ml Solution, 0.25-1 ML PO Q2H PRN for PAIN OR DYSPNEA Use sublingually if unable to swallow Allergies Coded Allergies: No Known Allergies (Verified Allergy, Unknown, 06/24/19) MIGUEL CHANDRA MD Jun 28, 2019 16:24
== END 2019-06-28 15:46 | disposition home or self-care (01) | DRG 835 ==
LOC: M ED 09:43 → M ED INP 14:38 → ENRESERV 14:50 → M MS5PR 15:25
PROVIDERS: ADMIT Internal Medicine; ATTEND General Practice
DX: C92.00 Acute myeloblastic leukemia, not having achieved remission (principal); L03.113 Cellulitis of right upper limb; I10 Essential (primary) hypertension; Z79.82 Long term (current) use of aspirin; Z79.899 Other long term (current) drug therapy; Z96.49 Presence of other endocrine implants; Z66 Do not resuscitate; R53.83 Other fatigue; M18.11 Unilateral primary osteoarthritis of first carpometacarpal joint, right hand; R63.4 Abnormal weight loss